=== PATIENT | female | born 1975 | race Caucasian/White ===

== ENCOUNTER 2019-07-23 06:12 | Day surgery (SDC) | payer OTHER ==
[2019-07-23] MEDS ORDERED: DEXAMETHASONE 4 MG/ML VIAL IVP ONE (06:13)
[2019-07-23] MEDS ORDERED: KETOROLAC 30 MG/ML VIAL IVP ONE (06:13)
[2019-07-23] MEDS ORDERED: PROPOFOL 200 MG/20 ML VIAL IVP ONE (06:13)
[2019-07-23] MEDS ORDERED: MIDAZOLAM 2 MG/2 ML VIAL IVP ONE (06:13)
[2019-07-23] MEDS ORDERED: CEFAZOLIN SODIUM IN 0.9 % NACL 2 GM/100 ML BAG IV ONE (06:42)
[2019-07-23 06:56] LABS: HCG UR QUAL NEGATIVE
[2019-07-23] MEDS ORDERED: LACTATED RINGERS 1,000 ML IV ONE (07:05)
[2019-07-23] MEDS ORDERED: BUPIVACAINE 0.25% PF 30 ML VIAL ONE (07:07)
--- NOTE | 2019-07-23 07:08 | ANESTHESIA ---
Pre-Anesthesia VS, & Labs - Diagnosis right carpal tunnel syndrome - Procedure right carpal tunnel release Vital Signs: Temp Pulse Resp BP Pulse Ox 37.9 C H 73 16 118/92 H 98 07/23/19 06:30 07/23/19 06:30 07/23/19 06:30 07/23/19 06:30 07/23/19 06:30 Height 5 ft 4 in Weight (kg) 90.72 kg - NPO >8 hours - Is Patient ?: No Home Medications and Allergies Home Medications: Ambulatory Orders Hydrocodone/Acetaminophen [[place]arshall 7.5-325 Tablet] 1 BID 07/20/19 Tizanidine HCl 2 mg PO BID 07/20/19 amLODIPine [Norvasc] 5 mg PO DAILY 07/20/19 Hydrocodone/Acetaminophen [Marshall 7.5-325 Tablet] 1 BID 07/20/19 Tizanidine HCl 2 mg PO BID 07/20/19 amLODIPine [Norvasc] 5 mg PO DAILY 07/20/19 Allergies/Adverse Reactions: Allergies Allergy/AdvReac Type Severity Reaction Status Date / Time No Known Drug Allergies Allergy Verified 07/23/19 07:07 Anes History & Medical History - Anesthetic History Anesthesia Complications: reports: No previous complications - Medical History Cardiovascular: reports: Hypertension (controlled by medication) Pulmonary: reports: None Gastrointestinal: reports: None Urinary: reports: None Neuro: reports: None Musculoskeletal: reports: Chronic back pain Endocrine/Autoimmune: reports: None Blood Disorders: reports: None Skin: reports: None Smoking Status: Former smoker (quit 10 years ago) Psychosocial: reports: No issues indicated - Surgical History General: Cholecystectomy, Gastric surgery (gastric bypass), Other (abdominoplasty) Orthopedic: Other (hip arthroscopy) Exam General: Alert, Oriented x3, Cooperative, No acute distress Dental: WNL Mouth Openin Fingerbreadth Neck Mobility: Normal Mallampati classification: II Thyromental Distance: greater than 6 cm Respiratory: Lungs clear, Normal breath sounds, No respiratory distress, No accessory muscle use Cardiovascular: Regular rate, Normal S1, Normal S2, No murmurs Mental/Cognitive Status: Alert/Oriented X3, Normal for patient Plan Anesthesia Type: General Consent for Procedure(s) Verified and Reviewed: Yes Code Status: Attempt Resuscitation ASA classification: 2-Mild systemic disease Is this case an emergency?: No
[2019-07-23] MEDS ORDERED: BUPIVACAINE 0.25% PF 30 ML VIAL SUBQ ONE ×2 (07:53)
[2019-07-23] MEDS ORDERED: oxyCODONE 5 MG TABLET PO PRN (08:13)
[2019-07-23] MEDS ORDERED: ONDANSETRON 4 MG/2 ML VIAL IVP PRN (08:13)
--- NOTE | 2019-07-23 08:16 | OPERATIVE REPORT ---
Operative Report - Other Other Information/Narrative: Date of Surgery: 23 July 2019 Pre-Op Diagnosis: Right Carpal tunnel syndrome Procedure: Right Open carpal tunnel release Postop Diagnosis: Right Carpal tunnel syndrome Primary Surgeon: Delgado Elmore Secondary Surgeon: Norris Weiss Complications: None Tourniquet Time: 4 minutes EBL: 5 cc Indication For Surgery: 43-year-old female has had 6 months of radial sided volar hand pain and numbness. It is worse at the nighttime and has not responded to conservative measures. The risks, benefits, and alternatives were discussed. Risks include pain, bleeding, infection, damage to nearby structures, numbness, pillar pain, lack of symptom relief, need for further surgery, DVT, PE, stroke, and . Written consent was obtained. The patient was met in the preoperative holding on the day of the procedure. Operative extremity was signed. Consent was verified. They desire to proceed. They were brought to the operating room and placed in the supine position. A well-padded forearm tourniquet was applied. They were prepped and draped in the standard fashion. A surgical timeout was held will be confirmed the patient procedure, identity, allergies, antibiotics, images and laterality. All were in agreement we proceeded. An Esmarch was used to exsanguinate the limb and the tourniquet was elevated to 250 mmHg. A 3cm longitudinal incision was made in line with the ulnar border of the ring finger starting at Mccallum's Cardinal line distally. This was just radial to the hook of the hamate. Bipolar electrocautery was used at the skin edge. Sharp dissection was brought down through the palmar fascia. Retractors were placed. The transverse carpal ligament was identified and a knife was used to separate it. The contents of the carpal tunnel were seen. Knife dissection was used to release the ligament as far proximal as could be visualized. Long handled Metzenbaum scissors were then used to create a pocket just superficial to the transverse carpal ligament and a retractor was placed. I then used a long handled Metzenbaum with the tips pointed ulnarly to complete the release 2 cm into the antebrachial fascia. Retractors were then moved distally and I confirmed complete release in the appearance of fat in the palm. A freer elevator was used to confirm complete release both proximally and distally. The wound was packed with a moist gauze and the tourniquet was deflated. After holding for 3 minutes the gauze was removed and bleeding was coming from the skin edge. Bleeding was controlled with bipolar electrocautery. The wound was closed with 3-0 nylon in a horizontal mattress configuration. 5 cc of local anesthetic was placed. A sterile bulky dressing was applied. He was awakened and transferred to the recovery room.
[2019-07-23] MEDS: fentaNYL 100 MCG/2 ML VIAL ONE ×2 (08:22→08:27)
[2019-07-23] MEDS ORDERED: oxyCODONE 5 MG TABLET ONE (09:10)
[2019-07-23 09:25] VITALS: BP 122/81
== END 2019-07-23 06:13 | disposition home or self-care (01) ==
LOC: SDS 06:12
PROVIDERS: ATTEND Orthopaedic Surgery
PROC: 01N50ZZ Release Median Nerve, Open Approach (ICD-10-PCS; principal; 2019-07-23 07:30)
DX: G56.01 Carpal tunnel syndrome, right upper limb (principal); I10 Essential (primary) hypertension; G89.29 Other chronic pain; M54.9 Dorsalgia, unspecified; Z87.891 Personal history of nicotine dependence
CPT/HCPCS: 81025

== ENCOUNTER 2020-10-13 13:15 | Outpatient (CLI) | payer OTHER ==
[2020-10-13] MEDS ORDERED: BUFFERED LIDOCAINE 10 ML SYRINGE ONE (14:09)
[2020-10-13] MEDS ORDERED: GADOBUTROL 7.5 MMOL/7.5 ML VIAL ONE (14:09)
[2020-10-13] MEDS ORDERED: iohexoL-240 10 ML VIAL IVP ONE (15:02)
[2020-10-13] MEDS ORDERED: GADOBUTROL 7.5 MMOL/7.5 ML VIAL IVP ONE (15:03)
[2020-10-13] MEDS ORDERED: BUFFERED LIDOCAINE 10 ML SYRINGE IU ONE (15:04)
--- NOTE | 2020-10-13 16:22 | XRAY Report ---
PROCEDURE: Arthrogram Needle Placement INDICATIONS: WRIST PAIN CONTRAST: CONTRAST: omnipaque, glenys FLUOROSCOPY TIME: FLUORO TIME: 20 sec and NUMBER IMAGES: 3 TECHNIQUE: After informed consent had been obtained, the wrist was examined fluoroscopically, and a site chosen for injection of the radiocarpal compartment from a dorsal approach. Skin was prepped and draped in the usual fashion and 1% lidocaine infiltrated from the skin down to the articular surface. A hypode rmic needle was then introduced into the articular space and a modest amount of contrast medium was i nstilled confirming intra-articular needle tip placement. This was followed by approximately 4 mL of a dilute gadolinium solution. Needle was removed and dressing was applied. The patient experienced no complications throughout the procedure and left the fluoroscopic suite in no apparent distress. FINDINGS: Two fluoroscopic spot images demonstrates intra-articular location to injected iodinated contrast. IMPRESSION: Successful fluoroscopic-guided administration of dilute Gadolinium solution for wrist MR arthrogram. Reviewed by: Bayron Connolly MD on 10/13/2020 4:21 PM PST Approved by: Bayron Connolly MD on 10/13/2020 4:21 PM PST Station ID: [id number]
--- NOTE | 2020-10-13 17:06 | MRI Report ---
PROCEDURE: Arthrogram Wrist RT INDICATIONS: WRIST PAIN CONTRAST: 3 to 4 mL of diluted intra-articular gadolinium contrast. TECHNIQUE: After the administration of 3-4 mL of dilute intra-articular Gadolinium contrast into the radiocarpal compartment, coronal T1 spin echo with fat saturation and T2 fast spin echo with fat saturation, axi al T1 spin echo and T2 fast spin echo with fat saturation, sagittal T1 spin echo with and without fat saturation through the wrist. COMPARISON: None. FINDINGS: Image quality: Excellent. Bones and cartilage: The carpal bones are normally aligned. There is marrow edema involving the rosemary te without discrete fracture line. No other area of abnormal marrow signal is seen. Carpal ligaments: There is rupture of the scapholunate ligament with contrast extravasating into the midcarpal compartment. The lunotriquetral ligaments ligament appears intact. The radioscaphocapitate and radiolunotriquetral ligaments appear intact. The deltoid ligament and sh ort radiolunate ligament also appear normal. Dorsally, the radioscaphotriquetral ligament appears in tact where visualized. On sagittal images, the pisohamate ligament appears intact. Triangular fibrocartilage complex: There is suggestion of triangular fibrocartilage tear near its rad ial insertion, with gadolinium extravasation into the distal radioulnar joint. The adjacent meniscal homolog appears normal. The extensor carpi ulnaris tendon is normal in location and morphology. Tendons and soft tissues: The carpal tunnel structures appear normal, including the median nerve. T he ulnar nerve appears normal within Guyon?s canal. All six extensor tendon compartments demonstrate normal morphology, without pathologic tendon sheath fluid. There is suggestion of lobulated ganglion cyst over ulnar aspect of ulnar styloid tip and carpal bones measures up to 1 x 1.2 x 2.1 cm in size . IMPRESSION: 1. Full-thickness rupture of scapholunate ligament with contrast extravasation to mid carpal compartm ent. Lunotriquetral ligament is intact. 2. Suggestion of triangular fibrocartilage tear near its radial insertion with contrast extravasated into the distal radioulnar joint. 3. Suggestion of a 1 x 1.2 x 2.1 cm ganglion cyst over lateral aspect of distal ulnar styloid and car pal bones. 4. Wrist tendons are grossly intact. 5. Marrow edema involving the lunate without discrete fracture line. Finding may represent bony contu john. Avascular necrosis cannot be excluded. Radiographic follow-up is recommended. Reviewed by: Sahil Schulz MD on 10/13/2020 5:04 PM PST Approved by: Sahil Schulz MD on 10/13/2020 5:04 PM PST Station ID: [id number]
== END 2020-10-13 13:16 | disposition home or self-care (01) ==
LOC: DI 13:15
PROVIDERS: ATTEND Orthopaedic Surgery
DX: S63.391A Traumatic rupture of other ligament of right wrist, initial encounter (principal)
CPT/HCPCS: 25246; 73222; 77002; A9585; Q9966

== ENCOUNTER 2021-04-21 09:45 | Outpatient (CLI) | payer OTHER ==
--- NOTE | 2021-04-24 14:22 | Mammography Report ---
BILATERAL DIGITAL SCREENING MAMMOGRAM 3D/2D: 04/21/2021 CLINICAL: Routine screening. Comparison is made to exams dated: 04/15/2019 mammogram - [facility], 12/18/2017 mammogram, and mammogram - [facility] - [facility]. The tissue of both breasts is heteroge neously dense. This may lower the sensitivity of mammography. No significant masses, calcifications, or other findings are seen in either breast. There has been no significant interval change. IMPRESSION: NEGATIVE There is no mammographic evidence of malignancy. A 1 year screening mammogram is recommended. This exam was interpreted at Station ID: [id number]. NOTE: For mammograms, a report in lay terms will be sent to the patient. Approximately 15% of breast malignancies will not be visualized mammographically. In the management of a palpable breast mass, a negative mammogram must not discourage biopsy of a clinically suspicious lesion. Electronically Signed By: Ye hernandez/valerie:04/21/2021 15:06:06 ACR BI-RADS Category 1: Negative 3341F PARENCHYMAL PATTERN: (D) - The breast(s) demonstrate(s) heterogeneously dense fibroglandular holden hodge. BI-RADS CATEGORY: (1) - 1 RECOMMENDATION: (ANNUAL) - Recommend routine annual screening mammography. [id number] 1 year screening LATERALITY: (B)
== END 2021-04-21 09:46 | disposition home or self-care (01) ==
LOC: DI 09:45
DX: Z12.31 Encounter for screening mammogram for malignant neoplasm of breast (principal)

== ENCOUNTER 2021-10-06 16:15 | Outpatient (CLI) | payer OTHER ==
--- NOTE | 2021-10-09 08:59 | Ultrasound Report ---
ULTRASOUND OF RIGHT AXILLA: 10/06/2021 CLINICAL: Enlarged right lymph node. Comparison is made to exams dated: 04/21/2021 mammogram - [facility] and 04/15/2019 mammogram - [facility]. MRI right shoulder 07/03/2021 [facility]. Real-time ultrasound of the right axilla was performed. Epps scale images of the real-time examinati on were reviewed. No significant abnormalities were seen sonographically in the right breast. There are small normal ap pearing right axillary nodes. The cortex is not thickened and the fatty hilum is preserved. IMPRESSION: BENIGN There is no sonographic evidence of malignancy. No enlarged right axillary nodes. No mass in the region of concern. Exam findings were conveyed to the patient. Patient is advised to monitor for significant change. Cli nical follow-up as needed. Patient denies enlarged lymph nodes elsewhere. The right axillary palpabl e was notice in August 2020 and does not appear to be related to Covid-19 vaccinations. Return to screening mammogram is recommended. 04/22/2022 screening mammogram. This exam was interpreted at Station ID: [id number]. Electronically Signed By: Ye Souza M.D. slc/:10/06/2021 17:16:04 Ultrasound BI-RADS: 2 Benign BI-RADS CATEGORY: (2) - 2 RECOMMENDATION: (ANNUAL) - Recommend routine annual screening mammography. [id number] 1 year screening LATERALITY: (B)
== END 2021-10-06 16:16 | disposition home or self-care (01) ==
LOC: DI 16:15
PROVIDERS: ATTEND Student in an Organized Health Care Education/Training Program
DX: R59.0 Localized enlarged lymph nodes (principal)

== ENCOUNTER 2023-03-22 10:22 | Day surgery (SDC) | payer OTHER ==
[2023-03-22] MEDS ORDERED: LACTATED RINGERS 1,000 ML IV ONE ×2 (10:52→12:30)
--- NOTE | 2023-03-22 10:57 | ANESTHESIA ---
Pre-Anesthesia VS, & Labs - Diagnosis positive cologuard - Procedure colonoscopy Vital Signs: Temp Pulse Resp BP Pulse Ox O2 Flow Rate 36.3 C L 69 17 120/88 H 98 03/22/23 10:35 03/22/23 10:35 03/22/23 10:35 03/22/23 10:35 03/22/23 10:35 Height: 5 ft 4 in Weight (kg): 85 kg Body Mass Index: 32.1 BMI Classification: Obese - NPO >8 hours - Is Patient ?: Waiver signed - Lab Results Lab results reviewed: Yes Home Medications and Allergies Hydrocodone/Acetaminophen [Lyles 7.5-325 Tablet] 1 tab PO BID 07/20/19 Tizanidine HCl 2 mg PO BID 07/20/19 Allergies/Adverse Reactions: Allergies Allergy/AdvReac Type Severity Reaction Status Date / Time No Known Drug Allergies Allergy Verified 03/22/23 10:45 Anes History & Medical History - Anesthetic History Anesthesia Complications: reports: No previous complications Family history of Anesthesia Complications: Denies Family history of Malignant Hyperthermia: Denies - Medical History Cardiovascular: reports: Hypertension Pulmonary: reports: None Gastrointestinal: reports: None Urinary: reports: None Neuro: reports: None Musculoskeletal: reports: Osteoarthritis, Chronic back pain Endocrine/Autoimmune: reports: None Blood Disorders: reports: None Skin: reports: None Smoking Status: Current every day smoker - Surgical History General: reports: Cholecystectomy, Gastric surgery, Other Orthopedic: reports: Other Exam General: Alert, Oriented x3, Cooperative Dental: WNL Mouth Openin Fingerbreadth Neck Mobility: Normal Mallampati classification: I Respiratory: Lungs clear Cardiovascular: Regular rate Plan Anesthesia Type: MAC Consent for Procedure(s) Verified and Reviewed: Yes Code Status: Attempt Resuscitation ASA classification: 2-Mild systemic disease Is this case an emergency?: No
[2023-03-22] MEDS ORDERED: PROPOFOL 500 MG/50 ML 500 MG/50 ML VIAL ONE (10:59)
--- NOTE | 2023-03-22 11:45 | HISTORY & PHYSICAL EXAMINATION ---
Chief Complaint - Chief Complaint Chief Complaint: here for colonoscopy History of Present Illness - History Obtained From Records Reviewed: yes History obtained from: pt Exam Limitations: none - History of Present Illness HPI Comment/Other: positive cologuard. no gi symptoms History - Past Medical History Cardiovascular: reports: Hypertension Respiratory: reports: None Neuro: reports: None Endocrine/Autoimmune: reports: None GI: reports: None : reports: None HEENT: reports: None Psych: reports: Anxiety, Claustrophobia Musculoskeletal: reports: Osteoarthritis, Chronic back pain Derm: reports: None MRSA Hx?: No - Past Surgical History General: reports: Cholecystectomy, Gastric surgery, Other Ortho: reports: Other Meds/Allgy - Home Medications Home Medications: Ambulatory Orders Medication Instructions Recorded Confirmed Hydrocodone/Acetaminophen [[place] 1 tab PO BID 07/20/19 03/22/23 7.5-325 Tablet] Tizanidine HCl 2 mg PO BID 07/20/19 03/22/23 - Allergies Allergies/Adverse Reactions: Allergies Allergy/AdvReac Type Severity Reaction Status Date / Time No Known Drug Allergies Allergy Verified 03/22/23 10:45 Review of Systems - Other Findings Other Findings: 10 pt ros as above otherwise unremarkable Exam - Vital Signs Vital Signs: Vital Signs x48h Temp Pulse Resp BP Pulse Ox 03/22/23 10:35 36.3 C L 69 17 120/88 H 98 - Physical Exam General Appearance: positive: No acute distress, Alert Eyes Bilateral: positive: PERRL, EOMI, No scleral icterus ENT: positive: No signs of dehydration Neck: positive: No JVD, Trachea midline Respiratory: positive: No respiratory distress Cardiovascular: positive: Regular rate & rhythm Abdomen: positive: No distention Neurologic/Psychiatric: positive: Oriented x3 Conclusion/Plan - Problem List (1) Abnormal stool test Conclusion/Plan: positive cologuard. plan colonoscopy. parq held and consent obtained - Lab Results Lab results reviewed: Yes
[2023-03-22] MEDS ORDERED: PROPOFOL 200 MG/20 ML VIAL IVP ONE (12:12)
[2023-03-22 12:52] VITALS: BP 104/75
== END 2023-03-22 10:23 | disposition home or self-care (01) ==
LOC: SDS 10:22
PROVIDERS: ATTEND Surgery
PROC: 0DBM8ZX Excision of Descending Colon, Via Natural or Artificial Opening Endoscopic, Diagnostic (ICD-10-PCS; 2023-03-22)
PROC: 0DBK8ZX Excision of Ascending Colon, Via Natural or Artificial Opening Endoscopic, Diagnostic (ICD-10-PCS; principal; 2023-03-22 11:30)
DX: R19.5 Other fecal abnormalities (principal); D12.2 Benign neoplasm of ascending colon; D12.4 Benign neoplasm of descending colon; I10 Essential (primary) hypertension; F17.200 Nicotine dependence, unspecified, uncomplicated; E66.9 Obesity, unspecified; Z68.32 Body mass index [BMI] 32.0-32.9, adult
CPT/HCPCS: 45380; J7120